=== PATIENT | female | born 1985 | race Caucasian/White ===

== ENCOUNTER → 2017-12-15 | Outpatient (CLI) | payer BC ==
[~2017-12-15] MED LIST: ACDPT PO; DOCU100C37 PO; IBUP-1780 PO; OXYC-465 PO; PNV1TABL81 PO; PREN1TAB39; RNT150T PO
[2017-12-15 15:44] LABS: URINE CREATININE FOR RATIO 13 MG/DL (30-125); URINE PROTEIN FOR RATIO ONLY < 6 MG/DL (6-12)
== END ==
LOC: LABNPT 15:19
PROVIDERS: ATTEND Obstetrics & Gynecology
DX: O14.03 Mild to moderate pre-eclampsia, third trimester (principal)
CPT/HCPCS: 82570; 84156

== ENCOUNTER 2017-12-22 09:55 | Outpatient (CLI) | payer BC ==
[~2017-12-22] VITALS: Ht 160 cm; Wt 72.6 kg
[~2017-12-22 09:55] MED LIST changes: -DOCU100C37 PO; -IBUP-1780 PO; -OXYC-465 PO; -PNV1TABL81 PO
[2017-12-22 10:03] VITALS: BP 146/100
[2017-12-22] MEDS ORDERED: PNV1TABL81 PO (10:10)
[2017-12-30] MEDS ORDERED: OXYC-465 PO (22:30)
[2017-12-30] MEDS ORDERED: IBUP-1780 PO (22:30)
[2017-12-30] MEDS ORDERED: DOCU100C37 PO (22:30)
== END 2017-12-22 10:17 | disposition home or self-care (01) ==
LOC: PREOP 09:55
PROVIDERS: ATTEND Obstetrics & Gynecology
DX: Z01.818 Encounter for other preprocedural examination (principal)
CPT/HCPCS: 87081

== ENCOUNTER → 2017-12-22 | Outpatient (CLI) | payer BC ==
[2017-12-22 16:14] LABS: URINE CREATININE FOR RATIO 37 MG/DL (30-125); URINE PROTEIN FOR RATIO ONLY < 6 MG/DL (6-12)
== END ==
LOC: LABNPT 15:50
PROVIDERS: ATTEND Obstetrics & Gynecology
DX: O28.8 Other abnormal findings on antenatal screening of mother (principal)
CPT/HCPCS: 82570; 84156

== ENCOUNTER 2017-12-30 05:25 | Inpatient (IN) | payer BC ==
[~2017-12-30] VITALS: Ht 160 cm; Wt 72.1 kg
[~2017-12-30 05:25] MED LIST changes: +PNV1TABL81 PO
[2017-12-30] MEDS ORDERED: metroNIDAZOLE 500MG/100ML IVPB 100 ML IV ONE (09:15)
[2017-12-30] MEDS ORDERED: ceFAZolin 2 GM IV Premixed 50 ML IV ONE (09:15)
[2017-12-30] MEDS ORDERED: LACTATED RINGERS 1,000 ML IV PRN (09:21)
[2017-12-30 09:30] VITALS: BP 144/88
[2017-12-30] MEDS ORDERED: METOCLOPRAMIDE INJ 10 MG/2 ML (REGLAN) IV ONE (09:30)
[2017-12-30] MEDS ORDERED: CITRIC ACID/SOB CIT (BICITRA) 30 ML UDC PO ONE (09:30)
[2017-12-30] MEDS ORDERED: raNItidine INJECTION 50 MG in NS (IVPB) 50 ML IV ONE (09:30)
[2017-12-30 10:15] LABS: BASOPHILS % (AUTO) 0 % (0-10); EOSINOPHILS # (AUTO) 0.1 10^3/uL (0.0-0.3); EOSINOPHILS % (AUTO) 1 % (0-10); HEMATOCRIT 34 % (35-52); HEMOGLOBIN 11.8 G/DL (11.5-16.0); LYMPHOCYTES # (AUTO) 1.2 X 10^3 (1.0-4.0); LYMPHOCYTES % (AUTO) 18 % (12-44); MEAN CORPUSCULAR HEMOGLOBIN 29 PG (25-34); MEAN CORPUSCULAR HGB CONC 35 G/DL (32-36); MEAN CORPUSCULAR VOLUME 83 FL (80-99); MEAN PLATELET VOLUME 11.5 FL (7.4-10.4); MONOCYTES # (AUTO) 0.4 X 10^3 (0.0-1.0); MONOCYTES % (AUTO) 7 % (0-12); NEUTROPHILS # (AUTO) 4.8 X 10^3 (1.8-7.8); NEUTROPHILS % (AUTO) 74 % (42-75); PLATELET COUNT 138 10^3/uL (130-400); RED BLOOD COUNT 4.07 10^6/uL (4.35-5.85); WHITE BLOOD COUNT 6.4 10^3/uL (4.3-11.0)
[2017-12-30] MEDS ORDERED: ONDANSETRON 4 MG/2 ML (SDV) Z0FRAN ONE ×2 (10:25→12:14)
[2017-12-30] MEDS ORDERED: DEXAMETHASONE 10 MG/ML (DECADRON) 1 ML VIAL ONE (10:25)
[2017-12-30] MEDS ORDERED: fentaNYL INJECTION 100 MCG/2 ML AMP ONE (10:25)
[2017-12-30] MEDS ORDERED: LIDOCAINE PF 2% 5 ML (XYLOCAINE) VIAL ONE ×2 (10:26→11:04)
[2017-12-30] MEDS ORDERED: KETOROLAC 30 MG/ML VIAL ONE (10:49)
[2017-12-30] MEDS ORDERED: BUPIVACAINE 0.75% PRESERVATIVE FREE 10 ML ONE (10:51)
--- NOTE | 2017-12-30 11:55 | History & Physical ---
History and Physical Date Seen by Provider: Dec 30, 2017 Time Seen by Provider: 11:52 This patient is a 31-year-old 2 white female with a long history of low platelets. Her platelet count 1 100,000. Platelet count is around 130. She presents now for repeat delivery while her platelet count is an acceptable range. She is 38 weeks gestation. She denies rupture membranes or bleeding. She's had no other problems with this . GBS culture was negative. Allergies are none Medications are vitamins Medical surgical and social histories are per the antepartum record HEENT exam is normal Neck is supple no lymphadenopathy no thyromegaly Abdomen is gravid soft nontender nondistended Extremities show no clubbing cyanosis. There is no Homans sign. Pelvic exam is deferred Laboratory Tests 12/30/17 09:45 Platelet count currently is 138,000 Assessment and plan term 38 weeks' gestation in patient with cytopenia. Patient also had 2 previous C-sections she presents now for repeat . Surgical risk complication recovering follow-up have been fully discussed patient is ready to proceed. with thrombocytopenia Allergies and Home Medications Allergies Coded Allergies: No Known Drug Allergies (Verified , 04/22/09) Home Medications Pnv No.122/Iron/Folic Acid 1 Each Tablet, 1 EACH PO DAILY, (Reported) Patient Home Medication List Home Medication List Reviewed: Yes Clinical Quality Measures DVT/VTE Risk/Contraindication: Risk Factor Score Per Nursin RFS Level Per Nursing on Admit: 1=Low/No VTE PPX CHRIS HOYOS MD Dec 30, 2017 11:55 am
[2017-12-30] MEDS ORDERED: PHENYLEPHRINE 100 MCG/ML 10 ML (ANESTHESIA) SYR ONE (12:15)
[2017-12-30] MEDS ORDERED: D5 LR IV SOLUTION 1,000 ML IV ONE (14:42)
[2017-12-30] MEDS ORDERED: ONDANSETRON 4 MG/2 ML (SDV) Z0FRAN IVP PRN (14:45)
[2017-12-30] MEDS ORDERED: TETANUS,DIPTH,PERTUSS P/F (BOOSTRIX) 0.5 ML VIAL IM ONE (14:45)
[2017-12-30] MEDS ORDERED: PROMETHAZINE INJ 25 MG/ML (PHENERGAN) AMP IM PRN (14:45)
[2017-12-30] MEDS ORDERED: MEPERIDINE (DEMEROL) INJ 100 MG/ML IM PRN (14:45)
[2017-12-30] MEDS ORDERED: MEASLES,MUMPS,RUBELLA 1 EA INJ SC ONE (14:45)
[2017-12-30] MEDS: D5 LR IV SOLUTION 1,000 ML IV SCH ×2 (15:20→20:50)
[2017-12-30] MEDS: oxyCODONE/APAP 10/325MG (PERCOCET 10) TABLET PO PRN ×2 (15:40→20:11)
[2017-12-30 16:00] VITALS: BP 142/97
[2017-12-30 17:00] VITALS: BP 148/109
[2017-12-30] MEDS: KETOROLAC 30 MG/ML VIAL IVP SCH ×3 (18:33→23:44)
[2017-12-30 20:05] VITALS: BP 134/92
[2017-12-30] MEDS: DOCUSATE SODIUM 100 MG (COLACE) CAP PO SCH (20:14)
--- NOTE | 2017-12-30 20:45 | OPERATIVE REPORT ---
DATE OF SERVICE: 12/30/2017 PREOPERATIVE DIAGNOSIS: Term at 38 and 3/7 weeks' gestation with previous x2 and with thrombocytopenia. POSTOPERATIVE DIAGNOSIS: Term at 38 and 3/7 weeks' gestation with previous x2 and with thrombocytopenia. OPERATIVE PROCEDURE: Repeat low transverse delivery of a viable male infant with Apgars of 8 and 9 at 1 and 5 minutes respectively, weight of 7 pounds 1 ounce. Cord blood pH of 7.34 and a time of 12:18. OPERATIVE DESCRIPTION: With the patient in the supine position under satisfactory spinal analgesia, she was prepped and draped in the usual fashion for abdominal surgery. Richardson catheter was placed in urinary bladder. A repeat Pfannenstiel incision was made through the skin with a scalpel by removing the patient's previous Pfannenstiel incisional scars. The abdomen was then entered in the usual manner. Bladder retractor was placed in position. Clean scalpel was used to make a 4 cm hysterotomy incision transversely across the uterine segment that released clear amniotic fluid on hysterotomy. The incision was extended bluntly and then a vigorous viable male was delivered via the uterine incision in the usual manner. had Apgars of 8 and 9 at 1 and 5 minutes respectively and other metrics as noted above. Cord blood was obtained after the umbilical cord was doubly clamped and cut and the infant had been passed to nurse Muniz pediatric nurse in attendance for delivery. Placenta delivered spontaneously Brunner. It was normal with a 3-vessel cord. The uterus was exteriorized and interior wiped clean with a wet laparotomy sponge. Uterine incision closed with a running locked suture of 2-0 Vicryl. Hemostasis was complete. The uterus was returned to abdominal cavity. All blood clot and debris removed from the abdominal cavity. With sponge and needle counts correct and hemostasis assured, the anterior parietal peritoneum was closed with running suture of 2-0 Vicryl. Rectus muscles were reapproximated with that suture as well. The rectus fascia was closed with 2-0 Vicryl, subcutaneous tissue was closed with 2-0 Vicryl and the skin was stapled. Sponge and needle counts were correct. At the end of procedure, estimated blood loss for procedure was around 300 mL. The patient tolerated the procedure well and was transferred to the recovery room in stable condition. Then, infant had been taken stable to the full term nursery under the care of nurse Muniz. Job ID: [id number] DocumentID: [id number] Dictated Date: 12/30/2017 12:41:40 Slide Maker Date: 12/30/2017 20:44:39 Dictated By: CHRIS HOYOS MD
[2017-12-30] MEDS: OXYTOCIN/NORMAL SALINE 500 ML IV SCH ×2 (22:15→22:16)
[2017-12-30] MEDS ORDERED: IBUP-1780 PO (22:30)
[2017-12-30] MEDS ORDERED: DOCU100C37 PO (22:30)
[2017-12-30] MEDS ORDERED: OXYC-465 PO (22:30)
--- NOTE | 2017-12-30 22:32 | Discharge Instructions ---
Discharge Instructions Discharge Medications New, Converted or Re-Newed RX: RX on Chart Patient Instructions Patient Instructions: As directed Return to The Hospital For: As directed Activity & Diet Discharge Diet: No Restrictions Activity as Tolerated: No Orders-Post D/C & Referrals Follow Up Appt: RTC on Saturday, January 06, 2018 at 930 a.m. for incision check. Call to make follow up appt. for patient in 4 weeks. Wound Care: Remove silverio, apply benzoin and steri strips. Activity Per routine post instructions. Please call in RX to patient pharmacy. Diet as tolerated Patient may shower or tub bathe as desired. Continue home meds CHRIS HOYOS MD Dec 30, 2017 10:32 pm
[2017-12-30 23:45] VITALS: BP 136/99
[2017-12-31] MEDS: oxyCODONE/APAP 10/325MG (PERCOCET 10) TABLET PO PRN ×6 (00:19→20:44)
[2017-12-31] MEDS: D5 LR IV SOLUTION 1,000 ML IV SCH (01:18)
--- OUTSIDE RECORDS SUMMARY | 2017-12-31 03:45 | XMS REPORT ---
Author Author ROGELIO MINA Organization [facility] Address [address] [place] [address] Care Team Providers Care Tuyere Fitter Name Role Phone KEELEY ROGELIO Unavailable PROBLEMS Unknown Problems ALLERGIES No Known Allergies SOCIAL HISTORY Never Assessed PLAN OF CARE Activity Details Follow Up prn Reason: VITAL SIGNS Height 63 in 2016-02-15 Weight 128.2 lbs 2016-02-15 Temperature 97.9 degrees Fahrenheit 2016-02-15 Heart Rate 96 bpm 2016-02-15 Respiratory Rate 18 2016-02-15 BMI 22.71 kg/m2 2016-02-15 Blood pressure systolic 104 mmHg 2016-02-15 Blood pressure diastolic 66 mmHg 2016-02-15 MEDICATIONS Medication Instructions Dosage Frequency Start Date End Date Duration Status Lisinopril 20 MG Orally Once a day 1 tablet 24h Active DayQuil Multi-Symptom Active Amoxicillin 500 MG Orally every 12 hrs 1 tablet 12h 18 Jan, 2016 Jan, 10 day(s) Active RESULTS Name Result Date Reference Range STREP A (IN HOUSE) 2016-02-15 STREP A Positive Control + Lot # [id number] Exp date 11/03/17 PROCEDURES Procedure Date Ordered Result Body Site STREP A ASSAY W/OPTIC Feb 15, 2016 IMMUNIZATIONS No Known Immunizations MEDICAL (GENERAL) HISTORY Type Description Date Medical History hypertension Surgical History section x 2 Hospitalization History surgeries
--- OUTSIDE RECORDS SUMMARY | 2017-12-31 03:45 | XMS REPORT | Continuity of Care Document ---
Author Author [facility] Organization [facility] Address Unknown Phone Unavailable Allergies Active Description Code Type Severity Reaction Onset Reported/Identified Relationship to Patient Clinical Status Yes No Known Drug Allergies [id number] Drug Allergy Unknown N/A 04/22/2009 Medications There is no data. Problems Date Dx Coded Attending Type Code Diagnosis Diagnosed By 12/16/2017 CHRIS HOYOS MD Ot O14.03 MILD TO MODERATE PRE-ECLAMPSIA, THIRD TR 12/16/2017 CHRIS HOYOS MD Ot O14.03 MILD TO MODERATE PRE-ECLAMPSIA, THIRD TR 12/22/2017 CHRIS HOYOS MD Ot O14.03 MILD TO MODERATE PRE-ECLAMPSIA, THIRD TR 12/22/2017 CHRIS HOYOS MD Ot O14.03 MILD TO MODERATE PRE-ECLAMPSIA, THIRD TR Procedures There is no data. Results Test Result Range Urine protein/creatinine mass ratio - 12/15/17 15:21 Urine protein measurement (mass/volume) < mg/dL 6-12 Urine creatinine measurement (mass/volume) 13 mg/dL 30- 125 Urine protein/creatinine mass ratio TNP NRG Urine protein/creatinine mass ratio - 12/22/17 15:16 Urine protein measurement (mass/volume) < mg/dL 6-12 Urine creatinine measurement (mass/volume) 37 mg/dL 30- 125 Urine protein/creatinine mass ratio TNP NRG Encounters ACCT No. Visit Date/Time Discharge Status Pt. Type Provider Facility Loc./Unit Complaint [id number] 12/22/2017 15:50:00 12/22/2017 23:59:59 CLS Outpatient CHRIS HOYOS MD [facility] LABNPT [id number] 12/22/2017 09:55:00 12/22/2017 10:17:00 DIS Outpatient CHRIS HOYOS MD [facility] PREOP [id number] 12/15/2017 15:19:00 12/15/2017 23:59:59 CLS Outpatient CHRIS HOYOS MD [facility] [id number] 11/27/2012 15:34:00 11/27/2012 23:59:59 CLS Outpatient [id number] 12/30/2017 12:00:00 PEN Preadmit CHRIS HOYOS MD [facility] [id number] 12/22/2017 09:56:00 Document Registration
[2017-12-31 04:20] VITALS: BP 138/97
[2017-12-31] MEDS: KETOROLAC 30 MG/ML VIAL IVP SCH (06:13)
--- NOTE | 2017-12-31 07:10 | Progress Note-Standard ---
Standard Progress Note Progress Notes/Assess & Plan Date Seen by Provider: Dec 31, 2017 Time Seen by Provider: 07:09 Progress/Assessment & Plan This patient is without complaint. She is ambulating, voiding, tolerating oral intake well, has good pain control. Patient denies chest pain, denies shortness of breath, denies nausea vomiting, and denies headache. Vital Signs 12/31/17 04:20 Temp 99.3 Pulse 93 Resp 16 B/P (MAP) 138/97 (111) Pulse Ox 99 O2 Delivery Room Air Vital signs are stable. Patient is afebrile. Fundus is firm below the umbilicus and nontender. Extremities show no clubbing cyanosis. There is no Homans sign. Assessment and plan postoperative day number 1 status post repeat doing well. Plan is routine convalescence care today and discharge home tomorrow CRHIS HOYOS MD Dec 31, 2017 7:10 am
[2017-12-31 08:00] VITALS: BP 123/82
[2017-12-31] MEDS: DOCUSATE SODIUM 100 MG (COLACE) CAP PO SCH ×2 (08:15→20:44)
--- NOTE | 2017-12-31 08:20 | Anesthesia-Regional Post-Op ---
Regional Patient Condition Mental Status: Alert, Oriented x3 Circulation: Same as Pre-Op Headache: Absent Sensation: Full Recovery Motor Block: Absent Post Op Complications Complications None Follow Up Care/Instructions Patient Instructions None needed. Anesthesia/Patient Condition Patient is doing well, no complaints, stable vital signs, no apparent adverse anesthesia problems. No complications reported per nursing. D/C home per [facility] Criteria: Yes CARRIE DAVIS CRNA Dec 31, 2017 08:20
[2017-12-31] MEDS ORDERED: TETANUS,DIPTH,PERTUSS P/F (BOOSTRIX) 0.5 ML VIAL IM ONE (11:47)
[2017-12-31 12:00] VITALS: BP 122/80
[2017-12-31] MEDS: IBUPROFEN 800 MG (MOTRIN) TAB PO SCH ×2 (12:10→18:39)
[2017-12-31 16:15] VITALS: BP 122/81
[2017-12-31 20:44] VITALS: BP 123/86
[2018-01-01] MEDS: IBUPROFEN 800 MG (MOTRIN) TAB PO SCH ×3 (00:29→11:55)
[2018-01-01 02:15] VITALS: BP 116/78
[2018-01-01] MEDS: oxyCODONE/APAP 10/325MG (PERCOCET 10) TABLET PO PRN ×3 (04:01→11:55)
--- NOTE | 2018-01-01 07:15 | Progress Note-Standard ---
Standard Progress Note Progress Notes/Assess & Plan Date Seen by Provider: Jan 01, 2018 Time Seen by Provider: 07:14 Progress/Assessment & Plan This patient is without complaint. She is ambulating, voiding, tolerating oral intake well, has good pain control. Patient denies chest pain, denies shortness of breath, denies nausea vomiting, and denies headache. Vital Signs 12/31/17 04:20 Temp 99.3 Pulse 93 Resp 16 B/P (MAP) 138/97 (111) Pulse Ox 99 O2 Delivery Room Air Vital signs are stable. Patient is afebrile. Fundus is firm below the umbilicus and nontender. Extremities show no clubbing cyanosis. There is no Homans sign. Assessment and plan postoperative day number 1 status post repeat doing well. Plan is routine convalescence care today and discharge home tomorrow January 01, 2015 Patient is without complaint. She is ambulating, voiding, tolerating oral intake well has good pain control and is requesting discharge home Vital Signs 12/31/17 01/01/18 20:44 02:15 Temp 98.2 Pulse 90 Resp 16 B/P (MAP) 116/78 (91) Pulse Ox 98 O2 Delivery Room Air Vital signs are stable. Patient is afebrile. Fundus is firm below the umbilicus and nontender. The surgical incision is clean dry and intact. Extremities show clubbing or cyanosis. There is no Homans sign. Assessment and plan post operative day number 2 status post repeat doing well. Plan is for discharge home with follow-up in clinic Final Diagnosis Term repeat delivery CHRIS HOYOS MD Jan 01, 2018 7:15 am
[2018-01-01 08:15] VITALS: BP 122/75
[2018-01-01] MEDS: DOCUSATE SODIUM 100 MG (COLACE) CAP PO SCH (08:31)
[2018-01-01 12:30] VITALS: BP 122/75
== END 2018-01-01 12:30 | disposition home or self-care (01) | DRG 766 ==
LOC: LDRP 09:00
PROVIDERS: ADMIT Obstetrics & Gynecology; ATTEND Obstetrics & Gynecology
PROC: 10D00Z1 Extraction of Products of Conception, Low, Open Approach (ICD-10-PCS; principal; 2017-12-30 11:53)
DX: O99.113 Other diseases of the blood and blood-forming organs and certain disorders involving the immune mechanism complicating pregnancy, third trimester (principal); D69.6 Thrombocytopenia, unspecified; O34.211 Maternal care for low transverse scar from previous cesarean delivery; Z3A.38 38 weeks gestation of pregnancy; Z37.0 Single live birth; Z23 Encounter for immunization
CPT/HCPCS: 36415; 85025; 86850; 86900; 86901; 87081; 90715; 94664